=== PATIENT | female | born 1995 | race Caucasian/White ===

== ENCOUNTER 2018-11-15 04:52 | Emergency (ER) | payer SELFPAY ==
[~2018-11-15] VITALS: Wt 75.3 kg
--- NOTE | ~2018-11-15 | EKG ---
[place], [place] ELECTROCARDIOGRAM REPORT NAME: GEREMIAS SPEARS UNIT #: [id number] ROOM: DOCTOR: EPIPHANY DRAFT REPORT BIRTHDATE: [birth year] [facility] Test Date: 2018-11-15 Test Time: 05:31:41 Pat Name: GEREMIAS SPEARS Department: Room: Gender: F Foot Caster: [place] Aggarwal : 1995 Requested By: MORRIS BETANCOURT Order Number: [id number] Reading MD: Cheryle Mendieta MD Measurements Intervals Harvey Rate: 90 P: 0 KS: 145 QRS: 34 QRSD: 94 T: 60 QT: 412 QTc: 504 Interpretive Statements Sinus rhythm Abnormal Q suggests anterior infarct Prolonged QT interval No previous ECG available for comparison Electronically Signed On 11-16-2018 7:46:47 PDT by Cheryle Mendieta MD CM:EKGRPT:ELECTROCARDIOGRAM REPORT [id number] MORRIS BETANCOURT MD EPIPHANY DRAFT REPORT MORRIS BETANCOURT MD
[2018-11-15 05:29] LABS: HEMATOCRIT 38.3 % (37.0-47.0); HEMOGLOBIN 13.5 g/dl (12.0-16.0); MEAN CELL VOLUME 89.5 fl (81.0-99.0); MEAN CORPUSCULAR HGB 31.5 pg (27.0-31.0); MEAN CORPUSCULAR HGB CONC 35.2 g/dl (33.0-37.0); MEAN PLATELET VOLUME 9.2 fl (9.6-12.3); PLATELET COUNT AUTOMATED 227 10*3/uL (130-400); RED BLOOD COUNT 4.28 10*6/uL (4.10-5.10); RED CELL DISTRI WIDTH 13.1 % (0-14.5); WHITE BLOOD COUNT 7.6 10*3/uL (4.8-10.8)
[2018-11-15 05:47] LABS: ALBUMIN 3.6 gm/dl (3.1-4.5); ALKALINE PHOSPHATASE 148 U/L (45-117); BUN 11 mg/dl (7-24); CHLORIDE 105 mmol/L (98-107); CREATININE 0.83 mg/dL (0.55-1.02); POTASSIUM 3.5 mmol/L (3.5-5.1); SGOT/AST 53 IU/L (3-35); SGPT/ALT 45 U/L (12-78); SODIUM 140 mmol/L (136-145); TOTAL PROTEIN 7.5 gm/dL (6.4-8.2)
[2018-11-15 05:48] LABS: B-hCG (QUALITATIVE) NEGATIVE (NEGATIVE)
[2018-11-15 05:50] LABS: TROPONIN I < 0.015 ng/ml (<0.045)
[2018-11-15 06:11] LABS: ATYPICAL LYMPHS 7 % (0-0); BASOPHILS 1 % (0-1); TOTAL CELLS COUNTED 100 #CELLS
[2018-11-15 06:12] LABS: PLATELET SUFFICIENCY NORMAL (NORMAL)
== END 2018-11-15 11:10 | disposition home or self-care (01) ==
LOC: ED 04:52
PROVIDERS: Emergency Medicine Emergency Medical Services
DX: T40.7X1A Poisoning by cannabis (derivatives), accidental (unintentional), initial encounter (principal); R40.20 Unspecified coma; R06.3 Periodic breathing; F11.10 Opioid abuse, uncomplicated; Y92.098 Other place in other non-institutional residence as the place of occurrence of the external cause